=== PATIENT | female | born 1980 | race Caucasian/White ===

== ENCOUNTER → 2016-11-26 | Outpatient (CLI) | payer OTHER ==
[~2016-11-26] MED LIST: JUICE PLUS PO
[2016-11-26 10:02] LABS: CHOLESTEROL/HDL RATIO 8.5
== END | disposition home or self-care (01) ==
LOC: C.LAB 08:16
PROVIDERS: ATTEND Student in an Organized Health Care Education/Training Program
DX: Z00.00 Encounter for general adult medical examination without abnormal findings (principal)

== ENCOUNTER 2020-09-26 10:43 | Inpatient (IN) ==
[2020-09-26] MEDS ORDERED: OXYTOCIN 30 UNITS/500 ML BAG IV PRN ×3 (11:56→23:45)
--- NOTE | 2020-09-26 11:59 | History & Physical Report ---
Date of Service September 26, 2020 Assessment & Plan (1) Gestational diabetes mellitus (GDM) affecting , antepartum: (2) Postmaturity , 40-42 weeks gestation: (3) Encounter for induction of labor: Admission and Anticipated Discharge Date Admission Date: September 26, 2020 Admit. gbs neg. pitocin induction, epidural then arom. Anticipate . Fetus category one. History of Present Illness Chief Complaint: induction Primary Care Provider: Aliyah Gutierrez MD Patient is a 40yowf with iup at 40 weeks who presents to labor and delivery for elective induction. The has been uncomplicated. +fm. irregular contractions. no lof/vb. AMA. reassuring testing , panorama low risk. labs--A+/ab-/ri/rprnr/hepb-/hiv-/gc/ct-/gbs neg/ cf/sma neg/ panorama low risk, 16 week gtt nl, failed 28 week and 2 hr. Allergies Allergy/AdvReac Type Severity Reaction Status Date / Time No Known Drug Allergies Allergy Unknown Verified 09/26/20 11:47 adhesive tape AdvReac skin Verified 09/26/20 11:47 irritation Home Medications Medication Instructions Recorded Confirmed Type nutritional supplement-fiber oral 1 ea PO DAILY gm 12/15/18 09/26/20 History liquid prenat.vits,miguel,[id number] 1 tab PO DAILY 03/20/20 09/26/20 History acetone (urine) test #50 ea 07/05/20 09/25/20 Rx blood sugar diagnostic #150 ea 07/05/20 09/25/20 Rx blood-glucose meter #1 ea 07/05/20 09/25/20 Rx lancets 33 gauge #150 ea 07/05/20 09/25/20 Rx ferrous sulfate [iron] 325 mg PO DAILY 09/26/20 09/26/20 History Patient History Medical History Essential hypertriglyceridemia not current- no meds History of anemia History of menorrhagia Overweight Surgical History History of breast surgery S/P LASIK (laser assisted in situ keratomileusis) Family History Grandfather Carotid artery stenosis Myocardial infarction Hyperlipidemia Mother Hyperlipidemia Skin cancer Unknown Skin cancer Father Skin cancer Denies family history of Ovarian cancer Breast cancer Colorectal cancer Social History Smoking Status: Never smoker Hx Alcohol Use: Yes marital status: Single marital status details: Micah (43) [phone] Current Living Situation: Significant Other Current Living Situation Comment: lives with 3 children. current occupational status: employed current occupation: [employer] OB History G1--10/19--, 40 weeks, no issues G2--04/26, , 40 weeks, no issues g3--09/27, vavd, 40 weeks, macrocephaly ERGONOMIST History noncontributory Physical Exam Constitutional: WD/WN, vitals as above Gastrointestinal (Abdomen): soft, gravid, nt Psychiatric: A+Ox3, euthymic affect Genitourinary: cx--4/75/-2/soft,/mid toco--snehal efm--140s, with mod varibility, accels present, no decels. Results & Data ([facility]) Vital Signs (Past 12 Hours) Vital Signs Temp Pulse Resp BP 09/26/20 11:43 81 127/72 09/26/20 11:41 36.8 C 18 Code Status & VTE Plan VTE Prophylaxis Plan VTE Prophylaxis will be ordered: No Coding Level of Care Code None Diagnoses Gestational diabetes mellitus (GDM) affecting , antepartum O24.419 Postmaturity , 40-42 weeks gestation O48.0 Encounter for induction of labor Z34.90
[2020-09-26 12:22] LABS: Hematocrit (blood only) 37.6 % (37-47); Hemoglobin 12.9 g/dL (12.0-16.0); Mean Corpuscular Hgb Conc 34.3 g/dL (32-36); Mean Corpuscular Volume 93.3 fL (80-100); Mean Platelet Volume 11.5 fL (7.4-10.4); Platelet Count 247 K/uL (130-400); RDW Coefficient of Variation 13.8 % (11.5-14.5); RDW Standard Deviation 47.2 fL (36.4-46.3); Red Blood Count 4.03 M/uL (4.2-5.4); White Blood Count 9.73 K/uL (4.8-10.8)
[2020-09-26] MEDS: LACTATED RINGER'S 1,000 ML IV PRN ×4 (13:35→22:17)
--- NOTE | 2020-09-26 14:45 | Anesthesiology Consultation ---
Date of Service September 26, 2020 Assessment & Plan (1) Encounter for pre-operative examination: Chart Review Chart Review: Acceptable Risk for Surgery and Patient NOT seen in Pre Admission Testing Consults Requested none History Height/Weight Height: 5 ft 6 in Weight: 100.244 kg Allergies Allergy/AdvReac Type Severity Reaction Status Date / Time No Known Drug Allergies Allergy Unknown Verified 09/26/20 11:47 adhesive tape AdvReac skin Verified 09/26/20 11:47 irritation Medications Home Medications Medication Instructions Recorded Confirmed Last Taken nutritional supplement-fiber oral 1 ea PO DAILY gm 12/15/18 09/26/20 09/25/20 08:00 liquid prenat.vits,miguel,[id number] 1 tab PO DAILY 03/20/20 09/26/20 09/25/20 08:00 acetone (urine) test #50 ea 07/05/20 09/25/20 Unknown blood sugar diagnostic #150 ea 07/05/20 09/25/20 Unknown blood-glucose meter #1 ea 07/05/20 09/25/20 Unknown lancets 33 gauge #150 ea 07/05/20 09/25/20 Unknown ferrous sulfate [iron] 325 mg PO DAILY 09/26/20 09/26/20 09/25/20 08:00 Active Medications Generic Name Dose Route Start Last Admin Trade Name Freq PRN Reason Stop Dose Admin Lactated Ringer's 1,000 mls @ 125 mls/hr 09/26/20 11:56 09/26/20 14:42 Lr IV 09/28/20 11:55 999 mls/hr .Q8H PRN Infusion L&D Protocol Protocol Oxytocin 30 units in 500 mls @ 4 mls/hr 09/26/20 11:58 09/26/20 14:05 Pitocin IV 09/28/20 11:57 0.24 units/hr .Q24H PRN 4 mls/hr Labor Induction/Augmentation Titration Protocol 0.24 UNITS/HR Past Medical History Medical History Essential hypertriglyceridemia not current- no meds History of anemia History of menorrhagia Overweight Past Family History Family History Grandfather Carotid artery stenosis Myocardial infarction Hyperlipidemia Mother Hyperlipidemia Skin cancer Unknown Skin cancer Father Skin cancer Denies family history of Ovarian cancer Breast cancer Colorectal cancer Past Surgical History Surgical History History of breast surgery S/P LASIK (laser assisted in situ keratomileusis) Social History Smoking Status: Never smoker Hx Alcohol Use: No Hx Substance Use: No substance use type: does not use Physical Exam Vital Signs Last Vital Signs Temp 36.8 C 09/26/20 11:41 Pulse 77 09/26/20 14:39 Resp 18 09/26/20 11:41 BP 120/72 09/26/20 14:39 Testing Laboratory Results 09/26/20 12:11
[2020-09-26] MEDS ORDERED: fentaNYL citrate 100 MCG/2 ML VIAL ONE (14:54)
[2020-09-26] MEDS ORDERED: BUPIVACAINE 0.25% 30 ML VIAL ONE (14:54)
[2020-09-26] MEDS ORDERED: ePHEDrine sulfate 50 MG/ML AMP ONE (14:54)
[2020-09-26] MEDS ORDERED: SODIUM CHLORIDE 0.9% INJ 10 ML VIAL ONE (14:54)
[2020-09-26] MEDS ORDERED: fentaNYL 2MCG/ML ROPIVACAINE 1.25MG/ML 100 ML BAG EPI ONE (14:55)
[2020-09-26] MEDS ORDERED: ePHEDrine sulfate 50 MG/ML AMP IV PRN (14:57)
[2020-09-26] MEDS ORDERED: ONDANSETRON INJ 2 MG/ML 2 ML VIAL IV PRN (14:57)
[2020-09-26] MEDS ORDERED: NALOXONE HCL 0.4 MG/1 ML VIAL/CARP IV PRN (14:57)
[2020-09-26] MEDS ORDERED: diphenhydrAMINE 50 MG/ML VIAL IV PRN (14:57)
[2020-09-26] MEDS ORDERED: NALOXONE HCL 1 MG in SODIUM CHLORIDE 0.9% 1000ML 1,000 ML IV PRN (14:57)
[2020-09-26] MEDS ORDERED: fentaNYL 2MCG/ML ROPIVACAINE 1.25MG/ML 100 ML BAG EPI PRN (14:57)
--- NOTE | 2020-09-26 16:56 | Obstetrical Progress Note ---
Date of Service September 26, 2020 Assessment & Plan (1) Encounter for induction of labor: Admission and Anticipated Discharge Date Admission Date: September 26, 2020 Continue current management. Fetus category one. Anticipate . Subjective comfortable with epidural Physical Exam Constitutional: WD/WN, vitals as above Psychiatric: A+Ox3, euthymic affect Genitourinary: cx--5/80/-2 arom--copious clear toco--q2min, pit at 4 efm--130s with mod variability, accels to 150s, no decels Results & Data ([facility]) Vital Signs (Past 12 Hours) Vital Signs Temp Pulse Resp BP Pulse Ox 09/26/20 16:51 67 99 09/26/20 16:48 90 114/69 09/26/20 16:46 86 98 09/26/20 16:41 72 98 09/26/20 16:36 68 99 09/26/20 16:32 64 114/60 09/26/20 16:31 65 99 09/26/20 16:30 16 09/26/20 16:26 73 98 09/26/20 16:21 72 98 09/26/20 16:16 71 99 09/26/20 16:13 73 108/64 09/26/20 16:11 73 111/64 98 09/26/20 16:06 70 98 09/26/20 16:05 68 108/58 L 09/26/20 16:03 72 103/62 09/26/20 16:01 72 104/63 98 09/26/20 16:00 16 09/26/20 15:59 73 98/64 L 09/26/20 15:57 67 108/61 09/26/20 15:56 73 98 09/26/20 15:55 70 114/60 09/26/20 15:53 80 114/59 L 09/26/20 15:51 79 110/55 L 98 09/26/20 15:49 75 115/66 09/26/20 15:47 72 123/67 09/26/20 15:46 72 98 09/26/20 15:45 75 122/71 09/26/20 15:44 18 09/26/20 15:42 73 119/75 09/26/20 15:41 72 98 09/26/20 15:36 70 99 09/26/20 15:31 72 98 09/26/20 15:26 71 97 09/26/20 15:21 70 97 09/26/20 15:16 66 98 09/26/20 15:11 69 98 09/26/20 15:06 74 99 09/26/20 15:01 73 100 09/26/20 14:54 70 97 09/26/20 14:49 72 98 09/26/20 14:45 36.5 C 09/26/20 14:44 74 98 09/26/20 14:39 77 120/72 09/26/20 13:36 82 122/72 09/26/20 11:43 81 127/72 09/26/20 11:41 36.8 C 18 PG Care Time/CCT Total # of Minutes Spent Total Time Spent with Patient: Total time spent is greater than 50% in coordination of care (as documented) at patient's floor/unit and/or counseling patient: Coding Level of Care Code None Diagnoses Encounter for induction of labor Z34.90
--- NOTE | 2020-09-26 17:56 | Labor Progress Brief Note ---
Date of Service September 26, 2020 Subjective comfortable, no pressure Assessment & Plan (1) Encounter for induction of labor: Admission and Anticipated Discharge Date Admission Date: September 26, 2020 Making progress, may go quickly. If variables persist, may need amnioinfusion. Fetus overall reassuring. Anticipate . Physical Exam Constitutional: WD/WN, vitals as above Psychiatric: A+Ox3, euthymic affect Genitourinary: cx--6/100/-1 toco--q2-3min efm--130s with mod variability, variables with contractions since rupture Results & Data ([facility]) Vital Signs (Past 12 Hours) Vital Signs Temp Pulse Resp BP Pulse Ox 09/26/20 17:51 75 100 09/26/20 17:46 62 116/67 100 09/26/20 17:41 75 99 09/26/20 17:36 79 99 09/26/20 17:32 75 102/61 09/26/20 17:31 69 100 09/26/20 17:30 18 09/26/20 17:26 36.4 C L 68 99 09/26/20 17:21 81 100 09/26/20 17:17 75 110/59 L 09/26/20 17:16 73 98 09/26/20 17:11 67 99 09/26/20 17:06 80 100 09/26/20 17:02 71 112/60 09/26/20 17:01 64 100 09/26/20 17:00 18 09/26/20 16:56 59 L 100 09/26/20 16:54 87 92 09/26/20 16:51 67 99 09/26/20 16:48 90 114/69 09/26/20 16:46 86 98 09/26/20 16:41 72 98 09/26/20 16:36 68 99 09/26/20 16:32 64 114/60 09/26/20 16:31 65 99 09/26/20 16:30 16 09/26/20 16:26 73 98 09/26/20 16:21 72 98 09/26/20 16:16 71 99 09/26/20 16:13 73 108/64 09/26/20 16:11 73 111/64 98 09/26/20 16:06 70 98 09/26/20 16:05 68 108/58 L 09/26/20 16:03 72 103/62 09/26/20 16:01 72 104/63 98 09/26/20 16:00 16 09/26/20 15:59 73 98/64 L 09/26/20 15:57 67 108/61 09/26/20 15:56 73 98 09/26/20 15:55 70 114/60 09/26/20 15:53 80 114/59 L 09/26/20 15:51 79 110/55 L 98 09/26/20 15:49 75 115/66 09/26/20 15:47 72 123/67 09/26/20 15:46 72 98 09/26/20 15:45 75 122/71 09/26/20 15:44 18 09/26/20 15:42 73 119/75 09/26/20 15:41 72 98 09/26/20 15:36 70 99 09/26/20 15:31 72 98 09/26/20 15:26 71 97 09/26/20 15:21 70 97 09/26/20 15:16 66 98 09/26/20 15:11 69 98 09/26/20 15:06 74 99 09/26/20 15:01 73 100 09/26/20 14:54 70 97 09/26/20 14:49 72 98 09/26/20 14:45 36.5 C 09/26/20 14:44 74 98 09/26/20 14:39 77 120/72 09/26/20 13:36 82 122/72 09/26/20 11:43 81 127/72 09/26/20 11:41 36.8 C 18 Coding Level of Care Code None Diagnoses Encounter for induction of labor Z34.90
--- NOTE | 2020-09-26 18:31 | Labor Progress Brief Note ---
Date of Service September 26, 2020 Subjective comfortable Assessment & Plan (1) Encounter for induction of labor: Admission and Anticipated Discharge Date Admission Date: September 26, 2020 Improved variables with position change. anticipate . Physical Exam Constitutional: WD/WN, vitals as above Psychiatric: A+Ox3, euthymic affect Genitourinary: was rechecked by nursing and 7.5. pit off variables have improved. toco--q2-4min Results & Data ([facility]) Vital Signs (Past 12 Hours) Vital Signs Temp Pulse Resp BP Pulse Ox 09/26/20 18:26 71 100 09/26/20 18:21 72 100 09/26/20 18:17 72 122/74 09/26/20 18:16 67 100 09/26/20 18:11 70 100 09/26/20 18:06 71 100 09/26/20 18:01 71 118/69 99 09/26/20 18:00 16 09/26/20 17:56 74 99 09/26/20 17:51 75 100 09/26/20 17:46 62 116/67 100 09/26/20 17:41 75 99 09/26/20 17:36 79 99 09/26/20 17:32 75 102/61 09/26/20 17:31 69 100 09/26/20 17:30 18 09/26/20 17:26 36.4 C L 68 99 09/26/20 17:21 81 100 09/26/20 17:17 75 110/59 L 09/26/20 17:16 73 98 09/26/20 17:11 67 99 09/26/20 17:06 80 100 09/26/20 17:02 71 112/60 09/26/20 17:01 64 100 09/26/20 17:00 18 09/26/20 16:56 59 L 100 09/26/20 16:54 87 92 09/26/20 16:51 67 99 09/26/20 16:48 90 114/69 09/26/20 16:46 86 98 09/26/20 16:41 72 98 09/26/20 16:36 68 99 09/26/20 16:32 64 114/60 09/26/20 16:31 65 99 09/26/20 16:30 16 09/26/20 16:26 73 98 09/26/20 16:21 72 98 09/26/20 16:16 71 99 09/26/20 16:13 73 108/64 09/26/20 16:11 73 111/64 98 09/26/20 16:06 70 98 09/26/20 16:05 68 108/58 L 09/26/20 16:03 72 103/62 09/26/20 16:01 72 104/63 98 09/26/20 16:00 16 09/26/20 15:59 73 98/64 L 09/26/20 15:57 67 108/61 09/26/20 15:56 73 98 09/26/20 15:55 70 114/60 09/26/20 15:53 80 114/59 L 09/26/20 15:51 79 110/55 L 98 09/26/20 15:49 75 115/66 09/26/20 15:47 72 123/67 09/26/20 15:46 72 98 09/26/20 15:45 75 122/71 09/26/20 15:44 18 09/26/20 15:42 73 119/75 09/26/20 15:41 72 98 09/26/20 15:36 70 99 09/26/20 15:31 72 98 09/26/20 15:26 71 97 09/26/20 15:21 70 97 09/26/20 15:16 66 98 09/26/20 15:11 69 98 09/26/20 15:06 74 99 09/26/20 15:01 73 100 09/26/20 14:54 70 97 09/26/20 14:49 72 98 09/26/20 14:45 36.5 C 09/26/20 14:44 74 98 09/26/20 14:39 77 120/72 09/26/20 13:36 82 122/72 09/26/20 11:43 81 127/72 09/26/20 11:41 36.8 C 18 Coding Level of Care Code None Diagnoses Encounter for induction of labor Z34.90
--- NOTE | 2020-09-26 19:15 | Labor Progress Brief Note ---
Date of Service September 26, 2020 Subjective comfortable Assessment & Plan (1) Encounter for induction of labor: Admission and Anticipated Discharge Date Admission Date: September 26, 2020 BS are good. Plan to restart pitocin. Fetus category one. Still anticipate . Physical Exam Constitutional: WD/WN, vitals as above Psychiatric: A+Ox3, euthymic affect Genitourinary: cx--7-8/100 but swollen ant lip/0 toco--have spaced some, q 2-4min efm--120s with mod variability, variables resolved, occasional early Results & Data ([facility]) Vital Signs (Past 12 Hours) Vital Signs Temp Pulse Resp BP Pulse Ox 09/26/20 19:11 78 98 09/26/20 19:06 87 98 09/26/20 19:01 80 100 09/26/20 19:00 81 16 118/64 09/26/20 18:56 80 98 09/26/20 18:51 78 98 09/26/20 18:47 71 118/71 09/26/20 18:46 75 99 09/26/20 18:41 74 100 09/26/20 18:36 73 100 09/26/20 18:31 74 118/73 100 09/26/20 18:30 18 09/26/20 18:26 71 100 09/26/20 18:21 72 100 09/26/20 18:17 72 122/74 09/26/20 18:16 67 100 09/26/20 18:11 70 100 09/26/20 18:06 71 100 09/26/20 18:01 71 118/69 99 09/26/20 18:00 16 09/26/20 17:56 74 99 09/26/20 17:51 75 100 09/26/20 17:46 62 116/67 100 09/26/20 17:41 75 99 09/26/20 17:36 79 99 09/26/20 17:32 75 102/61 09/26/20 17:31 69 100 09/26/20 17:30 18 09/26/20 17:26 36.4 C L 68 99 09/26/20 17:21 81 100 09/26/20 17:17 75 110/59 L 09/26/20 17:16 73 98 09/26/20 17:11 67 99 09/26/20 17:06 80 100 09/26/20 17:02 71 112/60 09/26/20 17:01 64 100 09/26/20 17:00 18 09/26/20 16:56 59 L 100 09/26/20 16:54 87 92 09/26/20 16:51 67 99 09/26/20 16:48 90 114/69 09/26/20 16:46 86 98 09/26/20 16:41 72 98 09/26/20 16:36 68 99 09/26/20 16:32 64 114/60 09/26/20 16:31 65 99 09/26/20 16:30 16 09/26/20 16:26 73 98 09/26/20 16:21 72 98 09/26/20 16:16 71 99 09/26/20 16:13 73 108/64 09/26/20 16:11 73 111/64 98 09/26/20 16:06 70 98 09/26/20 16:05 68 108/58 L 09/26/20 16:03 72 103/62 09/26/20 16:01 72 104/63 98 09/26/20 16:00 16 09/26/20 15:59 73 98/64 L 09/26/20 15:57 67 108/61 09/26/20 15:56 73 98 09/26/20 15:55 70 114/60 09/26/20 15:53 80 114/59 L 09/26/20 15:51 79 110/55 L 98 09/26/20 15:49 75 115/66 09/26/20 15:47 72 123/67 09/26/20 15:46 72 98 09/26/20 15:45 75 122/71 09/26/20 15:44 18 09/26/20 15:42 73 119/75 09/26/20 15:41 72 98 09/26/20 15:36 70 99 09/26/20 15:31 72 98 09/26/20 15:26 71 97 09/26/20 15:21 70 97 09/26/20 15:16 66 98 09/26/20 15:11 69 98 09/26/20 15:06 74 99 09/26/20 15:01 73 100 09/26/20 14:54 70 97 09/26/20 14:49 72 98 06/09/21 14:45 36.5 C 09/26/20 14:44 74 98 09/26/20 14:39 77 120/72 09/26/20 13:36 82 122/72 09/26/20 11:43 81 127/72 09/26/20 11:41 36.8 C 18 Coding Level of Care Code None Diagnoses Encounter for induction of labor Z34.90
--- NOTE | 2020-09-26 21:36 | Labor Progress Brief Note ---
Date of Service September 26, 2020 Subjective feeling pressure with contractions Assessment & Plan (1) Encounter for induction of labor: Admission and Anticipated Discharge Date Admission Date: September 26, 2020 making progress antony with better contractions. Fetus reassuring with variables with contractions. Anticipate . Physical Exam Constitutional: WD/WN, vitals as above Psychiatric: A+Ox3, euthymic affect Genitourinary: cx--7-8/100/0 with a very swollen ant lip, but then with a contraction--9+/100/0, almost able to reduce cervis toco--q2-4min, pit at 4 efm--120s with min to mod variability, variables with contractions Results & Data ([facility]) Vital Signs (Past 12 Hours) Vital Signs Temp Pulse Resp BP Pulse Ox 09/26/20 21:32 70 117/66 09/26/20 21:31 88 97 09/26/20 21:26 68 97 09/26/20 21:21 70 96 09/26/20 21:17 70 119/73 09/26/20 21:16 74 100 09/26/20 21:11 76 97 09/26/20 21:06 70 98 09/26/20 21:01 76 96 09/26/20 21:00 36.7 C 87 18 115/72 09/26/20 20:56 69 97 09/26/20 20:51 74 97 09/26/20 20:46 71 114/68 98 09/26/20 20:41 71 97 09/26/20 20:36 79 95 09/26/20 20:31 77 121/68 96 09/26/20 20:30 20 09/26/20 20:26 80 96 09/26/20 20:21 76 98 09/26/20 20:17 82 119/67 09/26/20 20:16 80 97 09/26/20 20:11 79 98 09/26/20 20:06 73 98 09/26/20 20:01 74 108/57 L 98 09/26/20 20:00 16 09/26/20 19:56 69 97 09/26/20 19:51 73 97 09/26/20 19:46 72 108/57 L 97 09/26/20 19:42 82 94 09/26/20 19:41 80 94 09/26/20 19:36 83 96 09/26/20 19:31 73 96 09/26/20 19:30 99 H 18 107/60 09/26/20 19:26 71 96 09/26/20 19:21 85 97 09/26/20 19:17 83 110/70 09/26/20 19:16 85 97 09/26/20 19:11 78 98 09/26/20 19:06 87 98 09/26/20 19:03 36.8 C 20 09/26/20 19:01 80 100 09/26/20 19:00 81 16 118/64 09/26/20 18:56 80 98 09/26/20 18:51 78 98 09/26/20 18:47 71 118/71 09/26/20 18:46 75 99 09/26/20 18:41 74 100 09/26/20 18:36 73 100 09/26/20 18:31 74 118/73 100 09/26/20 18:30 18 09/26/20 18:26 71 100 09/26/20 18:21 72 100 09/26/20 18:17 72 122/74 09/26/20 18:16 67 100 09/26/20 18:11 70 100 09/26/20 18:06 71 100 09/26/20 18:01 71 118/69 99 09/26/20 18:00 16 09/26/20 17:56 74 99 09/26/20 17:51 75 100 09/26/20 17:46 62 116/67 100 09/26/20 17:41 75 99 09/26/20 17:36 79 99 09/26/20 17:32 75 102/61 09/26/20 17:31 69 100 09/26/20 17:30 18 09/26/20 17:26 36.4 C L 68 99 09/26/20 17:21 81 100 09/26/20 17:17 75 110/59 L 09/26/20 17:16 73 98 09/26/20 17:11 67 99 09/26/20 17:06 80 100 09/26/20 17:02 71 112/60 09/26/20 17:01 64 100 09/26/20 17:00 18 09/26/20 16:56 59 L 100 09/26/20 16:54 87 92 09/26/20 16:51 67 99 09/26/20 16:48 90 114/69 09/26/20 16:46 86 98 09/26/20 16:41 72 98 09/26/20 16:36 68 99 09/26/20 16:32 64 114/60 09/26/20 16:31 65 99 09/26/20 16:30 16 09/26/20 16:26 73 98 09/26/20 16:21 72 98 09/26/20 16:16 71 99 09/26/20 16:13 73 108/64 09/26/20 16:11 73 111/64 98 09/26/20 16:06 70 98 09/26/20 16:05 68 108/58 L 09/26/20 16:03 72 103/62 09/26/20 16:01 72 104/63 98 09/26/20 16:00 16 09/26/20 15:59 73 98/64 L 09/26/20 15:57 67 108/61 09/26/20 15:56 73 98 09/26/20 15:55 70 114/60 09/26/20 15:53 80 114/59 L 09/26/20 15:51 79 110/55 L 98 09/26/20 15:49 75 115/66 09/26/20 15:47 72 123/67 09/26/20 15:46 72 98 09/26/20 15:45 75 122/71 09/26/20 15:44 18 09/26/20 15:42 73 119/75 09/26/20 15:41 72 98 09/26/20 15:36 70 99 09/26/20 15:31 72 98 09/26/20 15:26 71 97 09/26/20 15:21 70 97 09/26/20 15:16 66 98 09/26/20 15:11 69 98 09/26/20 15:06 74 99 09/26/20 15:01 73 100 09/26/20 14:54 70 97 09/26/20 14:49 72 98 09/26/20 14:45 36.5 C 09/26/20 14:44 74 98 09/26/20 14:39 77 120/72 09/26/20 13:36 82 122/72 09/26/20 11:43 81 127/72 09/26/20 11:41 36.8 C 18 Coding Level of Care Code None Diagnoses Encounter for induction of labor Z34.90
--- NOTE | 2020-09-26 22:37 | Delivery Summary ---
Vaginal Delivery Summary Date of Service September 26, 2020 Pre-operative Diagnosis: at 40 weeks Diet controlled GDM ama Post-operative Diagnosis: same shoulder dystocia Procedure: pitocin induction epidural arom first degree laceration and repair EBL: 300cc Anesthesia: epidural Procedure: The patient pushed for 4 contractions to deliver a viable male infant in harpreet position. The nose and mouth were bulb suctioned on the perineum and a loose double nuchal cord was easily reduced. A shoulder dystocia was encountered upon trying to deliver the anterior shoulder. This lasted less than one minute. Initial attempts at Mike and suprapubic pressure did not result in delivery of the shoulder. Attempt to deliver the posterior arm failed, so the operators had placed behind the right shoulder and was rotated and with suprapubic pressure the baby was delivered. The infant was placed in t he maternal abdomen for drying and attention and the cord was clamped and cut. The baby was then taken to the warmer for attention. Cord blood and segment obtained. Placenta delivered spontaneous, intact with a three vessel cord. Cervix/sulci/rectum were intact. A first degree perineal laceration was repaired in the normal standard fashion. Hemostasis obtained with dilute pitocin and fundal massage. Apgars were 8/9. Mother and baby doing well at the end of the delivery. Vaginal Delivery Summary and 1st Degree LAC [facility] Vaginal Delivery Charge Delivery Type Details: and 1st Degree LAC
[2020-09-26] MEDS ORDERED: ACETAMINOPHEN 325 MG TAB PO PRN (22:39)
[2020-09-26] MEDS ORDERED: IBUPROFEN 600 MG TAB PO PRN (22:39)
[2020-09-26] MEDS ORDERED: oxyCODONE/ACETAMINOPHEN 5mg/325mg TAB PO PRN (22:39)
--- NOTE | 2020-09-26 23:18 | Anesthesia Procedure Note ---
Date of Service September 26, 2020 Anesthesia Post Epidural Note Vital Signs Vital Signs: Temp Pulse Resp BP Pulse Ox 36.7 C 78 18 119/68 94 09/26/20 21:00 09/26/20 23:16 09/26/20 22:20 09/26/20 23:16 09/26/20 22:38 Notes Mental Status: alert / awake / arousable and participated in evaluation Nausea / Vomiting: adequately controlled Pain: adequately controlled Airway Patency, RR, SpO2: stable & adequate BP & HR: stable & adequate Hydration State: stable & adequate Neuraxial Anesthesia: was administered and sensory block is resolving Anesthetic Complications: no major complications apparent and Pt Satisfied with anesthetic care Epidural: Removed without complications and With tip intact Notes: Epidural site clean, dry and intact. No signs of edema, erythema or bruising at insertion site. Pt instructed to request anesthesia if she has residual lower extremity numbness or if she develops lower extremity pain or weakness, back pain or headache.
[2020-09-26] MEDS ORDERED: SUPERCREAM 0.870% 15 GM JAR EXT PRN (23:45)
[2020-09-26] MEDS ORDERED: BENZOCAINE 20% AER SPR 82.5 GM CAN EXT PRN (23:45)
[2020-09-26] MEDS ORDERED: bisacodyL 10 MG SUPP PR PRN (23:45)
[2020-09-26] MEDS ORDERED: DIPHTHERIA/TETANUS/PERTUSSIS 0.5 ML SYR/VIAL IM ONE (23:45)
[2020-09-26] MEDS ORDERED: HYDROCORTISONE ACETATE 25 MG SUPP PR PRN (23:45)
[2020-09-26 23:49] LABS: Base Excess Cord Arterial Bld -1.5 mEq/L (-9-1.8); Base Excess Cord Venous Blood -1.2 mEq/L (-7.7-1.9); CO2 Cord Arterial Blood 45 mmHg (39.1-73.5); Cord Venous Blood HCO3 24 mmol/L (18.4-26.8); Cord Venous Blood PCO2 43 mmHg (30.4-57.2); Cord Venous Blood PO2 26 mmHg (14.1-43.3); Cord Venous Blood pH 7.37 (7.20-7.44); HCO3 Cord Arterial Blood 24 mmol/L (19.7-28.5); PO2 Cord Arterial Blood 24 mmHg (4.1-31.7); pH Cord Arterial Blood 7.35 (7.1-7.38)
--- NOTE | 2020-09-27 05:54 | Obstetrical Progress Note ---
Date of Service <Dragan Ellington MD - Last Filed: 09/27/20 07:25> September 27, 2020 Assessment & Plan <Dragan Ellington MD - Last Filed: 09/27/20 07:25> (1) Postmaturity , 40-42 weeks gestation: - PNL: Rh pos, RI, GBS neg, COVID neg - Feels well today. Eating well, voiding well, ambulating well - Pain well controlled with ibuprofen 600mg Q4H PRN - Routine care -- OOB, ambulation, diet progression as tolerated - After discharge will have 6 week follow-up with Dr. Jeff Camp <Dragan Ellington MD - Last Filed: 09/27/20 07:25> Rebecca is a 40 y/o female who is PPD #1 following at 40 weeks. She reports feeling well overall this morning. Very light abdominal cramping and 0/10 pain well managed on analgesics. Voiding well. Tolerating meals overnight without difficulty. Patient has been able to ambulate some. IS passing gas, no bowel movement. Has persistent lochia with some improvement this morning. C urrently without issues. Review of Systems Denies fever or chills. Denies shortness of breath or cough. Denies chest pain. Denies breast pain. Denies dysuria. Denies leg pain or leg swelling. Denies headache or changes in vision. Physical Exam <Dragan Ellington MD - Last Filed: 09/27/20 07:25> General: Alert, oriented. No acute distress. Cardiac: Regular rate and rhythm. No murmurs. Respiratory: Clear to auscultation bilaterally a/p, no wheezes/rales/rhonchi. No increased work of breathing. Symmetrical chest rise. No respiratory distress. Abdomen: Soft, nontender, nondistended. Bowel sounds present. Uterus: Uterine fundus firm, palpable ~1 cm below umbilicus. Lower Extremities: No lower extremity edema or swelling. No deep calf pain. Karthik's negative bilaterally. Results & Data ([facility]) <Dragan Ellington MD - Last Filed: 09/27/20 07:25> Vital Signs (Past 12 Hours) Vital Signs Temp Pulse Pulse Resp BP BP Pulse Ox 09/27/20 04:15 36.9 C 81 18 122/79 98 09/27/20 01:50 36.7 C 61 16 135/75 97 09/27/20 00:45 36.7 C 88 20 123/72 09/27/20 00:30 71 117/58 L 09/27/20 00:15 90 16 115/65 09/27/20 00:00 77 125/69 09/26/20 23:46 81 128/81 09/26/20 23:45 18 09/26/20 23:30 78 18 113/68 09/26/20 23:16 78 119/68 09/26/20 23:15 20 09/26/20 23:00 78 18 129/71 09/26/20 22:46 86 120/61 09/26/20 22:45 36.8 C 18 09/26/20 22:38 84 94 09/26/20 22:36 85 100 09/26/20 22:31 81 100 09/26/20 22:30 78 122/62 09/26/20 22:26 80 100 09/26/20 22:21 82 99 09/26/20 22:20 18 09/26/20 22:17 85 90 09/26/20 22:16 73 134/70 99 09/26/20 22:11 79 99 09/26/20 22:06 90 96 09/26/20 22:01 85 96 09/26/20 22:00 79 20 112/67 09/26/20 21:56 88 97 09/26/20 21:51 79 96 09/26/20 21:47 78 111/62 09/26/20 21:46 85 97 09/26/20 21:41 84 96 09/26/20 21:36 76 96 09/26/20 21:32 70 117/66 09/26/20 21:31 88 97 09/26/20 21:30 18 09/26/20 21:26 68 97 09/26/20 21:21 70 96 09/26/20 21:17 70 119/73 09/26/20 21:16 74 100 09/26/20 21:11 76 97 09/26/20 21:06 70 98 09/26/20 21:01 76 96 09/26/20 21:00 36.7 C 87 18 115/72 09/26/20 20:56 69 97 09/26/20 20:51 74 97 09/26/20 20:46 71 114/68 98 09/26/20 20:41 71 97 09/26/20 20:36 79 95 09/26/20 20:31 77 121/68 96 09/26/20 20:30 20 09/26/20 20:26 80 96 09/26/20 20:21 76 98 09/26/20 20:17 82 119/67 09/26/20 20:16 80 97 09/26/20 20:11 79 98 09/26/20 20:06 73 98 09/26/20 20:01 74 108/57 L 98 09/26/20 20:00 16 09/26/20 19:56 69 97 09/26/20 19:51 73 97 09/26/20 19:46 72 108/57 L 97 09/26/20 19:42 82 94 09/26/20 19:41 80 94 09/26/20 19:36 83 96 09/26/20 19:31 73 96 09/26/20 19:30 99 H 18 107/60 09/26/20 19:26 71 96 09/26/20 19:21 85 97 09/26/20 19:17 83 110/70 09/26/20 19:16 85 97 09/26/20 19:11 78 98 09/26/20 19:06 87 98 09/26/20 19:03 36.8 C 20 09/26/20 19:01 80 100 09/26/20 19:00 81 16 118/64 09/26/20 18:56 80 98 09/26/20 18:51 78 98 09/26/20 18:47 71 118/71 09/26/20 18:46 75 99 09/26/20 18:41 74 100 09/26/20 18:36 73 100 09/26/20 18:31 74 118/73 100 09/26/20 18:30 18 09/26/20 18:26 71 100 09/26/20 18:21 72 100 09/26/20 18:17 72 122/74 09/26/20 18:16 67 100 09/26/20 18:11 70 100 09/26/20 18:06 71 100 09/26/20 18:01 71 118/69 99 09/26/20 18:00 16 09/26/20 17:56 74 99 <Verito Aguilar MD, FACOG - Last Filed: 09/27/20 07:36> Co-Signing Physician Notes Resident Physician Supervision Note: I interviewed and examined the patient. Discussed with Dr. Ellington and agree with findings and plan as documented in the note. Any exceptions or clarifications are listed here: Doing well. Routine care. Documented By: Verito Aguilar MD, FACOG Resident Activity Tracking <Dragan Ellington MD - Last Filed: 09/27/20 07:25> Resident Involvement: Resident Care Provided Care Provided: OB Delivery
[2020-09-27 06:26] LABS: Hematocrit (blood only) 35.1 % (37-47); Hemoglobin 11.7 g/dL (12.0-16.0)
[2020-09-27] MEDS: PRENATAL VITAMIN 1 TAB PO SCH (08:25)
[2020-09-27] MEDS: DOCUSATE SODIUM 100 MG CAP PO SCH ×2 (08:25→22:32)
[2020-09-27] MEDS ORDERED: bisacodyL 5 MG TABEC PO SCH (20:00)
--- NOTE | 2020-09-28 05:47 | Obstetrical Progress Note ---
Date of Service <Dragan Ellington MD - Last Filed: 09/28/20 06:39> September 28, 2020 Assessment & Plan <Dragan Ellington MD - Last Filed: 09/28/20 06:39> (1) Postmaturity , 40-42 weeks gestation: - PNL: Rh pos, RI, GBS neg, COVID neg - Feels well today. Eating well, voiding well, ambulating well - Pain well controlled with analgesics - Routine care -- OOB, ambulation, diet progression as tolerated - After discharge will have 6 week follow-up with Dr. Aguilar Subjective <Dragan Ellington MD - Last Filed: 09/28/20 06:39> Rebecca is a 40 y/o female who is PPD #2 following at 40 weeks. She reports feeling well overall this morning. Light abdominal cramping and 0/10 pain well managed on analgesics. Voiding well. Tolerating meals overnight without difficulty. Patient has been able to ambulate some. Is passing gas, no bowel movement. Has persistent lochia with some improvement this morning. Currently without issues. Review of Systems Denies fever or chills. Denies shortness of breath or cough. Denies chest pain. Denies breast pain. Denies dysuria. Denies leg pain or leg swelling. Denies headache or changes in vision. Physical Exam <Dragan Ellington MD - Last Filed: 09/28/20 06:39> General: Alert, oriented. No acute distress. Cardiac: Regular rate and rhythm. No murmurs. Respiratory: Clear to auscultation bilaterally a/p, no wheezes/rales/rhonchi. No increased work of breathing. Symmetrical chest rise. No respiratory distress. Abdomen: Soft, nontender, nondistended. Bowel sounds present. Uterus: Uterine fundus firm, palpable ~2 cm below umbilicus. Lower Extremities: No lower extremity edema or swelling. No deep calf pain. Karthik's negative bilaterally. Results & Data ([facility]) <Dragan Ellington MD - Last Filed: 09/28/20 06:39> Vital Signs (Past 12 Hours) Vital Signs Temp Pulse Resp BP Pulse Ox 09/27/20 23:30 36.6 C 69 18 113/73 97 09/27/20 19:08 36.8 C 82 16 109/69 97 <Kathi Manning MD - Last Filed: 09/28/20 07:14> Co-Signing Physician Notes Resident Physician Supervision Note: I interviewed and examined the patient. Discussed with Dr. Nobles and agree with findings and plan as documented in the note. Any exceptions or clarifications are listed here: PP2, meeting all milestones. Stable for d/c home today Documented By: Kathi Manning MD Resident Activity Tracking <Dragan Ellington MD - Last Filed: 09/28/20 06:39> Resident Involvement: Resident Care Provided Care Provided: OB Delivery
[2020-09-28] MEDS: PRENATAL VITAMIN 1 TAB PO SCH (09:05)
[2020-09-28] MEDS: DOCUSATE SODIUM 100 MG CAP PO SCH (09:05)
== END 2020-09-28 11:30 | disposition home or self-care (01) | DRG 807 ==
LOC: 4S1 11:29 → 4S2 09-27 01:14